=== PATIENT | female | born 1940 | race Caucasian/White ===

== ENCOUNTER → 2018-09-28 | Outpatient (CLI) | payer MEDICARE ==
[2018-10-01 19:52] LABS: Beef IgG 16.2 mcg/mL (< 2.0); Chicken Meat IgG <2.0 mcg/mL (< 2.0); Corn IgG 7.7 mcg/mL (< 2.0); Cow's Milk IgG 81.9 mcg/mL (< 2.0); Peanut IgG 3.5 mcg/mL (< 2.0); Pork IgG 3.9 mcg/mL (< 2.0); Potato IgG 2.6 mcg/mL (< 2.0); Soybean IgG <2.0 mcg/mL (< 2.0); Tomato IgG 3.2 mcg/mL (< 2.0)
== END | disposition home or self-care (01) ==
LOC: LABWHC1 12:10
PROVIDERS: ATTEND Otolaryngology
DX: J30.89 Other allergic rhinitis (principal)
CPT/HCPCS: 36415; 86001